=== PATIENT | female | born 1935 | race Caucasian/White ===

== ENCOUNTER 2023-08-28 08:36 | Day surgery (SDC) | payer MEDICARE, OTHER, SELFPAY ==
--- NOTE | 2023-08-28 | LES_PTH ---
PATIENT: FRANCESCA GARCIA LOC: [facility] [place][id number] AGE/SX: 87/F ROOM: RE08/28/[address]: Dr. Jennifer Chavis MD : [id number] BED: DIS: 08/28/2023 SPEC #: [id number] RECD: 08/28/23 09:54 STATUS: ANNI REDelmy #: [id number] HODA: 08/28/23 00:[address]: Jennifer Chavis DEPT: SURGICAL PATHOLOGY RECD BY: Chanel Varma ENTERED: 08/28/23 10:25 SP TYPE: Lesion OTHR DR: Dr. Santa Tay MD Tissues: A - Skin of leg, NOS B - Skin of leg, NOS Procedures: Frozen Section (charge) Frozen Section Add'l ([facility]) Surgery Specimen Level IV HEADER OPERATION: Excision SCC right pretibial area with frozen section PRE-OP DIAGNOSIS: Neoplasm of skin, squamous cell carcinoma, leg TISSUE SUBMITTED: A - Right pretibial area, frozen section, B - Excision lesion left dorsal hand FROZEN SECTION DIAGNOSIS Right pre-tibial area lesion, excisional biopsy: Negative for residual carcinoma. SJ:kandice 08/28/2023 MICROSCOPIC DIAGNOSIS A. Lesion, right pretibial area, biopsy: Mild actinic change and extensive solar elastosis. Dermal fibrosis and mild chronic inflammation. No evidence of malignancy. B. Skin lesion of left dorsal hand, excision: Mild actinic change and extensive solar elastosis. Dermal fibrosis and mild chronic inflammation. No evidence of malignancy. Hyperkeratosis and focal parakeratosis. AM:kandice 08/31/2023 MICROSCOPIC DESCRIPTION Slides are reviewed. GROSS DESCRIPTION A - Received fresh for frozen section diagnosis labeled with the patient's name is a specimen designated right pretibial area. The specimen consists of a maier-white skin ellipse measuring 1.2 x 0.7 x 0.1 cm. The specimen is oriented by photograph identifying medial margin and one tip, medial margin inked black, lateral margin blue, one of the tips identified inked green and other tip is yellow. The specimen is serially sectioned and submitted entirely for frozen section diagnosis in two cassettes. Cassette 1 contains the tips of the skin ellipse. B - Received in fixative is one container labeled with the patient's name and designated excision lesion left dorsal hand. The specimen consists of a shave biopsy of maier-white skin measuring 0.7 x 0.5 x 0.1 cm. The specimen is inked, serially sectioned and submitted entirely in one cassette. / SJ:kandice 08/28/2023 TC:3 CPT: 09675 x2, 11484, 05370
--- NOTE | 2023-08-28 08:58 | PCM.HP.BLA ---
History and Physical Date of Admission: 08/28/23 Interim Note: Patient is examined and there are no changes to the H&P dated 08/04/2023. She has a recent diagnosis of SCC of her right leg and a lesion of her left hand. For excision of the SCC with frozen section For excision of the lesion of her left hand Assessment & Plan Assessment/Plan (1) Neoplasm of uncertain behavior of skin: (2) SCC (squamous cell carcinoma), leg: PLAN: Plan For excision lesions hand and leg
[2023-08-28 09:03] VITALS: BP 147/86; PULSE 68; RESP 16; TEMP 36.2; O2SAT 95; BMI 20.9
[2023-08-28] MEDS: Lidocaine 1% /Epi 1:100 9 ML, Sodium Bicarbonate 1 MEQ OPERA.SITE (09:45)
[2023-08-28 09:51] VITALS: BP 142/58; BP 159/64; O2SAT 96; O2SAT 97; O2SAT 98; O2SAT 99
--- NOTE | 2023-08-28 10:26 | DCINST_ITS ---
Discharge Instructions Diet Discharge Diet: No restrictions Dressing / Incision Additional Dressing/Incision Instructions:: Leave the dressing intact on the right leg. If you need to remove it--replace wrap and maintain in place. Leave the dressing intact on the left hand. May shower over the site, but do not scrub. Take the oral antibiotic (Keflex) 2 x a day until finished. Follow Up Care Please Follow Up With: Jennifer Chavis MD When: in 2 weeks Test Results: Test results from this visit will be discussed in further detail at your follow- up appointment, if applicable. Discharge Plan Admission Attending Provider: Jennifer Chavis Primary Care Provider: Santa Tay Discharge Orders/Prescriptions Prescriptions: New cephalexin 500 mg capsule 500 mg PO BID Qty: 10 0RF No Action levothyroxine 25 mcg capsule 25 mcg PO DAILY simvastatin 20 mg tablet 20 mg PO DAILY raloxifene 60 mg tablet 60 mg PO DAILY Referrals / Follow Up: Santa Tay MD [Primary Care Provider] - Disposition Disposition (needs filled in before D/C Order can be placed): Home, Self Care
--- NOTE | 2023-08-28 10:30 | PCM.OPRPT ---
Problems Associated Problem List Diagnoses (1) Neoplasm of uncertain behavior of skin: (2) SCC (squamous cell carcinoma), leg: Report of Operation Date of Procedure: 08/28/23 Pre-Operative Diagnosis: SCC of right leg; lesion left hand skin of uncertain behavior Post-Operative Diagnosis: Same Surgery/Procedure Performed:: Excision SCC right leg with FS(2.0cm); excision lesion left hand (1.5cm) Surgeon: Jennifer Chavis Type of Anesthesia: Local Specimen's removed: SCC right leg and lesion left hand Description of Procedure: The patient is marked in the preop holding area prior to surgery. Informed consent is obtained. The patient was brought to the operating room and placed on the operating room table in the supine position. The right leg and left hand were prepped and draped in the usual sterile fashion. We initially began with injecting 1% Xylocaine buffered with sodium bicarb at the excision sites. Following this, they are elliptically excised and passed off the operative field to be sent to pathology. The biopsy-proven SCC of the right leg has orientation maintained while it is being sent for frozen section. Frozen section returned as clear margins. Both sites were then closed with a running chromic suture. Further reinforcing interrupted sutures are additionally placed. The hand is dressed with Dermabond, Steri-Strips, and a small Tegaderm. The leg is dressed with Xeroform, gauze, and a Coban wrap. She tolerated the procedure well was taken to the recovery area in an awake and stable condition. Needle and sponge counts are correct. Complications None Admit VTE Documentation VTE Mechan Device Prophylaxis: None Reason prophylaxis not ordered:: Treatment Not Indicated
[2023-08-28 10:36] VITALS: BP 154/67; PULSE 67; RESP 14; TEMP 37.1; O2SAT 100
== END 2023-08-28 10:51 | disposition home or self-care (01) ==
LOC: SDC 08:39 → AC 08:41
PROVIDERS: PCP Family Medicine; Referring Provider Plastic Surgery; Visit Provider Plastic Surgery
PROC: (CPT 11422; principal; 2023-08-28 10:15)
DX: D48.5 Neoplasm of uncertain behavior of skin (principal); L57.8 Other skin changes due to chronic exposure to nonionizing radiation; W89.9XXA Exposure to unspecified man-made visible and ultraviolet light, initial encounter
CPT/HCPCS: 11422; 11402; 88305; 88331; 88332